=== PATIENT | male | born 1970 | race African-American/Black ===

== ENCOUNTER 2020-03-04 17:33 | Inpatient (IN) | payer MEDICAID, OTHER, SELFPAY ==
[~2020-03-04] VITALS: Ht 177.8 cm; Wt 87.5 kg
[2020-03-04 18:49] LABS: BASOPHILS # (AUTO) 0.07 x10^3/uL (0-0.1); BASOPHILS % (AUTO) 1 % (0-1); EOSINOPHILS # (AUTO) 0.07 x10^3/uL (0-0.4); EOSINOPHILS % (AUTO) 1 % (1-7); LYMPHOCYTES # (AUTO) 2.58 x10^3/uL (1-3.4); LYMPHOCYTES % (AUTO) 39 % (22-44); MD NO; MEAN CORPUSCULAR HEMOGLOBIN 31.3 pg (27.5-34.5); MEAN CORPUSCULAR VOLUME 94.7 fL (81-97); MEAN PLATELET VOLUME 7.5 fL (7.4-10.4); MONOCYTES # (AUTO) 0.43 x10^3/uL (0.2-0.8); MONOCYTES % (AUTO) 7 % (2-9); NEUTROPHILS % (AUTO) 53 % (42-75); PLATELET COUNT 255 x10^3/uL (130-400); RED CELL DISTRIBUTION WIDTH 14.7 % (9.4-14.8)
[2020-03-04 18:57] LABS: ANION GAP 2 mmol/L (5-15); CALCIUM 9.4 mg/dL (8.5-10.1); CHLORIDE 109 mmol/L (98-107); CREATININE 1.39 mg/dL (0.7-1.3)
[2020-03-04 18:58] LABS: ALANINE AMINOTRANSFERASE 38 U/L (12-78); ALBUMIN 3.9 g/dL (3.4-5.0)
[2020-03-04 19:00] LABS: ALKALINE PHOSPHATASE 72 U/L (45-117); BILIRUBIN,TOTAL 0.3 mg/dL (0.2-1.0); TOTAL PROTEIN 7.7 g/dL (6.4-8.2)
--- NOTE | 2020-03-04 19:23 | NUR ---
PT BG LOW AND PT TO HAVE PIV PLACED WITH D5
[2020-03-04] MEDS ORDERED: DEXTROSE 50%, 50ML SYRINGE ONE (19:25)
--- NOTE | 2020-03-04 19:26 | NUR ---
MD CASTAÑEDA TO BEDSIDE, PT HAVING PIV PLACED BY EMS.
[2020-03-04] MEDS ORDERED: DEXTROSE 50%, 50ML SYRINGE IVPush ONE (19:30)
[2020-03-04] MEDS ORDERED: SODIUM CHLORIDE 0.9% 1,000ML IVBOLUS ONE (19:30)
[2020-03-04] MEDS ORDERED: MORPHINE SULFATE 4 MG/ML, 1ML IVPush PRN (19:30)
[2020-03-04] MEDS ORDERED: ONDANSETRON 2MG/ML, 2ML IVPush ONE ×2 (19:30→21:30)
[2020-03-04 19:33] LABS: MICROSCOPIC INDICATED
[2020-03-04] MEDS ORDERED: MORPHINE SULFATE 4 MG/ML, 1ML ONE (19:35)
[2020-03-04] MEDS ORDERED: ONDANSETRON 2MG/ML, 2ML ONE ×2 (19:35→21:21)
[2020-03-04 19:59] LABS: BASOPHILS # (AUTO) 0.02 x10^3/uL (0-0.1); BASOPHILS % (AUTO) 0 % (0-1); EOSINOPHILS # (AUTO) 0.08 x10^3/uL (0-0.4); EOSINOPHILS % (AUTO) 1 % (1-7); LYMPHOCYTES # (AUTO) 2.47 x10^3/uL (1-3.4); LYMPHOCYTES % (AUTO) 40 % (22-44); MD NO; MEAN CORPUSCULAR HEMOGLOBIN 31.2 pg (27.5-34.5); MEAN CORPUSCULAR HGB CONC 33.1 g/dL (33.2-36.2); MEAN CORPUSCULAR VOLUME 94.3 fL (81-97); MEAN PLATELET VOLUME 7.3 fL (7.4-10.4); MONOCYTES # (AUTO) 0.37 x10^3/uL (0.2-0.8); MONOCYTES % (AUTO) 6 % (2-9); NEUTROPHILS # (AUTO) 3.32 x10^3/uL (1.8-6.8); NEUTROPHILS % (AUTO) 53 % (42-75); PLATELET COUNT 233 x10^3/uL (130-400); RED BLOOD COUNT 4.42 x10^6/uL (4.38-5.82); RED CELL DISTRIBUTION WIDTH 14.3 % (9.4-14.8)
--- NOTE | 2020-03-04 21:19 | NUR ---
BREAK RN: NORA CASTAÑEDA AT BEDSIDE FOR RECHECK/EXPLANATION OF RESULTS AND POC. PT VERBALIZES UNDERSTANDING. PT REPORTS CONT NAUSEA BUT DENIES ANY OTHER SYMPTOMS. PT AO X 4. SKIN WARM AND DRY. RESP EVEN AND UNLABORED. PT ON ON CONT BP, CARDIAC AND SPO2 MONITORS. CALL LIGHT WITHIN REACH.
[2020-03-04] MEDS ORDERED: D5%-0.45% NACL 1,000 ML IV SCH (21:30)
[2020-03-04] MEDS ORDERED: OMNIPAQUE 350 MG/ML, 100ML BOTTLE ONE (21:46)
[2020-03-04] MEDS ORDERED: PROMETHAZINE 25 MG/ML, 1ML ONE (21:46)
[2020-03-04] MEDS ORDERED: PROMETHAZINE 25 MG/ML, 1ML IM ONE (22:00)
--- NOTE | 2020-03-04 22:05 | NUR ---
PT RESTING IN BED, HOSPITALIST AT BEDSIDE. MEDICATED PER MAR. DENIES ANY FURTHER NEEDS OR CONCERNS AT THIS TIME. CALL LIGHT IN REACH.
[2020-03-04] MEDS ORDERED: ACETAMINOPHEN 325 MG TABLET PO PRN (22:30)
[2020-03-04] MEDS ORDERED: THIAMINE 200 MG, MVI ADULT 10 ML, FOLIC ACID 1 MG in D5%-0.9% NACL 1,000 ML IV SCH (22:30)
[2020-03-04] MEDS ORDERED: hydrALAzine 20 MG/ML, 1ML IVPush PRN (22:30)
[2020-03-04] MEDS ORDERED: ONDANSETRON 2MG/ML, 2ML IVPush PRN (22:30)
[2020-03-04] MEDS: D5%-0.45% NACL 1,000 ML IV SCH (22:30)
--- NOTE | 2020-03-04 22:40 | NUR ---
REPORT CALLED TO RECEIVING RN. PT RESTING IN BED AT THIS TIME.
--- NOTE | 2020-03-04 22:47 | NUR ---
PER ADMITTING [facility] PT. DOES NOT NEED TO BE TESTED AND ETIENNE R/O. CONFIRMED THIS WITH VIRAJ PAREKH. PT. OK TO GO TO PREVIOUSLY ASSIGNED ROOM.
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
[2020-03-04 23:16] VITALS: BP 153/102
[2020-03-05 02:30] VITALS: BP 155/97
[2020-03-05 05:50] LABS: CHLORIDE 111 mmol/L (98-107)
[2020-03-05 05:54] LABS: ANION GAP 4 mmol/L (5-15); CALCIUM 8.7 mg/dL (8.5-10.1); CREATININE 1.16 mg/dL (0.7-1.3)
[2020-03-05 06:07] LABS: BASOPHILS # (AUTO) 0.03 x10^3/uL (0-0.1); BASOPHILS % (AUTO) 1 % (0-1); EOSINOPHILS # (AUTO) 0.16 x10^3/uL (0-0.4); EOSINOPHILS % (AUTO) 3 % (1-7); LYMPHOCYTES # (AUTO) 3.17 x10^3/uL (1-3.4); LYMPHOCYTES % (AUTO) 55 % (22-44); MD NO; MEAN CORPUSCULAR HEMOGLOBIN 31.4 pg (27.5-34.5); MEAN CORPUSCULAR HGB CONC 33.1 g/dL (33.2-36.2); MEAN CORPUSCULAR VOLUME 94.9 fL (81-97); MEAN PLATELET VOLUME 7.3 fL (7.4-10.4); MONOCYTES # (AUTO) 0.43 x10^3/uL (0.2-0.8); MONOCYTES % (AUTO) 8 % (2-9); NEUTROPHILS # (AUTO) 1.96 x10^3/uL (1.8-6.8); NEUTROPHILS % (AUTO) 34 % (42-75); PLATELET COUNT 222 x10^3/uL (130-400); RED BLOOD COUNT 4.27 x10^6/uL (4.38-5.82); RED CELL DISTRIBUTION WIDTH 14.7 % (9.4-14.8)
[2020-03-05] MEDS: PANTOPRAZOLE 40MG TABLET PO SCH (06:30)
[2020-03-05] MEDS: D5%-0.45% NACL 1,000 ML IV SCH ×2 (06:30→16:06)
[2020-03-05 07:02] VITALS: BP_SYST 145; BP_SYST 158; BP_DIAS 104; BP_DIAS 89
[2020-03-05] MEDS: ENOXAPARIN 30 MG/0.3 ML SQ SCH ×3 (11:26→22:47)
[2020-03-05 14:19] VITALS: BP 141/87
[2020-03-05] MEDS: LORazepam 0.5MG TABLET PO SCH (21:07)
[2020-03-05 21:12] VITALS: BP 159/101
[2020-03-05] MEDS: NICOTINE 14MG/24 HR PATCH.TD24 TD SCH ×2 (22:48)
[2020-03-06 00:17] VITALS: BP 144/97
[2020-03-06] MEDS: D5%-0.45% NACL 1,000 ML IV SCH ×3 (01:25→19:51)
[2020-03-06 06:14] LABS: BASOPHILS # (AUTO) 0.02 x10^3/uL (0-0.1); BASOPHILS % (AUTO) 1 % (0-1); EOSINOPHILS # (AUTO) 0.16 x10^3/uL (0-0.4); EOSINOPHILS % (AUTO) 4 % (1-7); LYMPHOCYTES # (AUTO) 2.02 x10^3/uL (1-3.4); LYMPHOCYTES % (AUTO) 44 % (22-44); MD NO; MEAN CORPUSCULAR HEMOGLOBIN 31.3 pg (27.5-34.5); MEAN CORPUSCULAR HGB CONC 33.1 g/dL (33.2-36.2); MEAN CORPUSCULAR VOLUME 94.6 fL (81-97); MEAN PLATELET VOLUME 7.4 fL (7.4-10.4); MONOCYTES # (AUTO) 0.45 x10^3/uL (0.2-0.8); MONOCYTES % (AUTO) 10 % (2-9); NEUTROPHILS # (AUTO) 1.91 x10^3/uL (1.8-6.8); NEUTROPHILS % (AUTO) 42 % (42-75); PLATELET COUNT 213 x10^3/uL (130-400); RED BLOOD COUNT 4.37 x10^6/uL (4.38-5.82); RED CELL DISTRIBUTION WIDTH 14.6 % (9.4-14.8)
[2020-03-06 06:22] LABS: CHLORIDE 112 mmol/L (98-107)
[2020-03-06 06:29] LABS: ALANINE AMINOTRANSFERASE 27 U/L (12-78); ALBUMIN 2.9 g/dL (3.4-5.0); ALKALINE PHOSPHATASE 62 U/L (45-117); ANION GAP 6 mmol/L (5-15); BILIRUBIN,TOTAL 0.3 mg/dL (0.2-1.0); CALCIUM 9.2 mg/dL (8.5-10.1); CREATININE 1.06 mg/dL (0.7-1.3); TOTAL PROTEIN 6.1 g/dL (6.4-8.2)
[2020-03-06 06:40] VITALS: BP 152/92
[2020-03-06] MEDS: LORazepam 0.5MG TABLET PO SCH ×3 (08:21→20:32)
[2020-03-06] MEDS: ENOXAPARIN 30 MG/0.3 ML SQ SCH ×2 (08:21→22:36)
[2020-03-06] MEDS: PANTOPRAZOLE 40MG TABLET PO SCH (08:21)
[2020-03-06 11:57] VITALS: BP 162/101
[2020-03-06 14:21] VITALS: BP 136/99
[2020-03-06 18:43] VITALS: BP 143/80
[2020-03-06] MEDS: NICOTINE 14MG/24 HR PATCH.TD24 TD SCH (22:37)
[2020-03-07 00:57] VITALS: BP 141/90
[2020-03-07] MEDS: D5%-0.45% NACL 1,000 ML IV SCH ×2 (04:04→11:46)
[2020-03-07 06:21] LABS: CHLORIDE 110 mmol/L (98-107)
[2020-03-07 06:22] LABS: BASOPHILS # (AUTO) 0.02 x10^3/uL (0-0.1); BASOPHILS % (AUTO) 1 % (0-1); EOSINOPHILS # (AUTO) 0.14 x10^3/uL (0-0.4); EOSINOPHILS % (AUTO) 3 % (1-7); LYMPHOCYTES # (AUTO) 2.11 x10^3/uL (1-3.4); LYMPHOCYTES % (AUTO) 40 % (22-44); MD NO; MEAN CORPUSCULAR HEMOGLOBIN 30.9 pg (27.5-34.5); MEAN CORPUSCULAR HGB CONC 32.8 g/dL (33.2-36.2); MEAN PLATELET VOLUME 7.8 fL (7.4-10.4); MONOCYTES # (AUTO) 0.47 x10^3/uL (0.2-0.8); MONOCYTES % (AUTO) 9 % (2-9); NEUTROPHILS # (AUTO) 2.57 x10^3/uL (1.8-6.8); NEUTROPHILS % (AUTO) 48 % (42-75); PLATELET COUNT 216 x10^3/uL (130-400); RED BLOOD COUNT 4.56 x10^6/uL (4.38-5.82); RED CELL DISTRIBUTION WIDTH 14.2 % (9.4-14.8)
[2020-03-07 06:26] LABS: ALANINE AMINOTRANSFERASE 26 U/L (12-78); ALBUMIN 3.1 g/dL (3.4-5.0); ALKALINE PHOSPHATASE 67 U/L (45-117); ANION GAP 9 mmol/L (5-15); BILIRUBIN,TOTAL 0.2 mg/dL (0.2-1.0); CREATININE 0.93 mg/dL (0.7-1.3); TOTAL PROTEIN 6.3 g/dL (6.4-8.2)
[2020-03-07 07:25] VITALS: BP 158/109
[2020-03-07] MEDS: PANTOPRAZOLE 40MG TABLET PO SCH (08:42)
[2020-03-07] MEDS: LORazepam 0.5MG TABLET PO SCH (08:42)
[2020-03-07] MEDS: ENOXAPARIN 30 MG/0.3 ML SQ SCH (11:43)
[2020-03-07 13:35] VITALS: BP 150/100
== END 2020-03-07 17:18 | disposition home or self-care (01) | DRG 641 ==
LOC: ED 22:07 → EDIP 22:34 → 5SO 23:06 → 4WST 03-06 11:42 → DCLOUNGE 03-07 14:48
PROVIDERS: ADMIT Hospitalist; ATTEND Internal Medicine
DX: E16.2 Hypoglycemia, unspecified (principal); N17.9 Acute kidney failure, unspecified; E86.0 Dehydration; F14.10 Cocaine abuse, uncomplicated; R03.0 Elevated blood-pressure reading, without diagnosis of hypertension; F15.10 Other stimulant abuse, uncomplicated; F17.210 Nicotine dependence, cigarettes, uncomplicated; Z56.0 Unemployment, unspecified; Z80.0 Family history of malignant neoplasm of digestive organs; Z83.3 Family history of diabetes mellitus
CPT/HCPCS: 36415; 80377; J7042; 74177; 80048; 80053; 81001; 82962; 83036; 83690; 83735; 84100; 84681; 85025; 99285; G0378; J1650; J2405; J2550; J3411; Q9967; G0481; J0360; J2270; J7030

== ENCOUNTER 2020-04-22 20:48 | Emergency (ER) | payer MEDICAID ==
[~2020-04-22] VITALS: Ht 177.8 cm; Wt 81.7 kg
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
[2020-04-22 22:03] LABS: ALANINE AMINOTRANSFERASE 28 U/L (12-78); ALBUMIN 3.7 g/dL (3.4-5.0); ANION GAP 7 mmol/L (5-15); CALCIUM 8.8 mg/dL (8.5-10.1); CHLORIDE 113 mmol/L (98-107); CREATININE 1.21 mg/dL (0.7-1.3)
[2020-04-22 22:05] LABS: SALICYLATE LEVEL < 1.7 mg/dL (2.8-20.0)
[2020-04-22 22:06] LABS: BASOPHILS # (AUTO) 0.02 x10^3/uL (0-0.1); BASOPHILS % (AUTO) 0 % (0-1); EOSINOPHILS # (AUTO) 0.18 x10^3/uL (0-0.4); EOSINOPHILS % (AUTO) 4 % (1-7); LYMPHOCYTES # (AUTO) 2.59 x10^3/uL (1-3.4); LYMPHOCYTES % (AUTO) 52 % (22-44); MD NO; MEAN CORPUSCULAR HEMOGLOBIN 30.5 pg (27.5-34.5); MEAN CORPUSCULAR HGB CONC 32.5 g/dL (33.2-36.2); MEAN PLATELET VOLUME 7.4 fL (7.4-10.4); MONOCYTES # (AUTO) 0.53 x10^3/uL (0.2-0.8); MONOCYTES % (AUTO) 11 % (2-9); NEUTROPHILS % (AUTO) 34 % (42-75); PLATELET COUNT 268 x10^3/uL (130-400); RED BLOOD COUNT 4.71 x10^6/uL (4.38-5.82); RED CELL DISTRIBUTION WIDTH 14.1 % (9.4-14.8)
[2020-04-22 22:11] LABS: AMPHETAMINE SCREEN, URINE Positive (Negative); BARBITURATE SCREEN, URINE Negative (Negative); BENZODIAZEPINE SCREEN, URINE Negative (Negative); CANNABINOID SCREEN, URINE Positive (Negative); COCAINE SCREEN, URINE Negative (Negative); METHADONE SCREEN, URINE Negative (Negative); OPIATE SCREEN, URINE Negative (Negative)
[2020-04-22 22:14] LABS: ALKALINE PHOSPHATASE 81 U/L (45-117); BILIRUBIN,TOTAL 0.3 mg/dL (0.2-1.0); TOTAL PROTEIN 7.3 g/dL (6.4-8.2)
--- NOTE | 2020-04-22 22:26 | NUR ---
PT LAYING IN [facility], [facility], NO CHANGE IN CONDITION. VSS. WAITING ON RECHECK. WCTM.
--- NOTE | 2020-04-22 23:37 | NUR ---
LATE ENTRY: PT GIVEN CRACKERS AND PEANUT BUTTER AND ADDITIONAL WARM BLANKETS FOR COMFORT, NAD, EVEN AND BILATERAL CHEST RISE AND FALL, SITTER IN LINE OF SIGHT, NO OTHER CHANGES IN CONDITION. WCTM.
--- NOTE | 2020-04-23 00:42 | NUR ---
PT RESTING ON GURNEY, NAD, EYES CLOSED, SITTER IN LINE OF SIGHT, EVEN AND BILATERAL RESPIRATIONS. WCTM.
--- NOTE | 2020-04-23 01:59 | NUR ---
PT RESTING ON GURNEY, APPEARS COMFORTABLE, EYES CLOSED, NAD, RESP WNL WITH EVEN AND BILATERAL CHEST RISE AND FALL, SITTER IN LINE OF SIGHT, WCTM. PT ON HOLD.
--- NOTE | 2020-04-23 02:53 | NUR ---
PT RESTING ON [facility], HOSPITAL BED ORDERED. PT NAD, COVERS OVER HEAD RESTING, APPEARS COMFORTABLE. SITTER IN LINE IF SIGHT. WCTM. SITTER IN LINE OF SIGHT.
--- NOTE | 2020-04-23 04:11 | NUR ---
PT RESTING ON GURNEY, HOSPITAL BED ORDERED. PT NAD, COVERS OVER HEAD RESTING, APPEARS COMFORTABLE. SITTER IN LINE IF SIGHT. WCTM. SITTER IN LINE OF SIGHT. ATTEMPTED TO MOVE PT TO HOSPITAL BED BUT PT REFUSED TO GET UP OR MOVE.
--- NOTE | 2020-04-23 05:19 | NUR ---
PT RESTING ON GURNEY, SITTER IN LINE OF SIGHT. PT NAD, APPEARS COMFORTABLE. BREAKFAST TRAY ORDERED. EVEN AND BILATERAL CHEST RISE AND FALL. WCTM.
--- NOTE | 2020-04-23 06:30 | NUR ---
PT RESTING ON HIS GURNEY, SITTER IN LINE OF SIGHT. EYES CLOSED, CHEST RISE AND FALL EVEN BILATERALLY. NAD, WCTM. PT ON HOLD. PT STILL REFUSING TO TRANSFER TO HOSPITAL BED FOR COMFORT.
--- NOTE | 2020-04-23 07:00 | NUR ---
Report from margot PAGE.
--- NOTE | 2020-04-23 07:00 | NUR ---
REPORT TO ROMAN PAGE. PT CARE TRANSFERRED AT THIS TIME.
--- NOTE | 2020-04-23 07:31 | NUR ---
Pt resting comfortably in bed. Sitter bedside monitoring pt.
--- NOTE | 2020-04-23 07:47 | NUR ---
THROUGHPUT RN::PER ERP, HAVE PSYCH CERTIFIED RECREATIONAL THERAPIST SEE PT THIS AM. SENT TEXT TO PSYCH CERTIFIED RECREATIONAL THERAPIST THAT EVAL IS NEEDED FOR PT.
--- NOTE | 2020-04-23 08:00 | NUR ---
Pt resting comfortably, sitter monitoring pt, will conitnue to monitor.
[2020-04-23 09:20] VITALS: BP 159/112
--- NOTE | 2020-04-23 09:20 | NUR ---
Pt resting in gurney. Pt given breakfast tray. Pt monitored by sitter 1:1. Pt expresses no needs at this time. Pt sts he doesnt need to use RR at this time.
--- NOTE | 2020-04-23 09:34 | NUR ---
THROUGHPUT NURSE::PSYCH ALUMINUM SHINGLE ROOFER COMING TO SEE PT THIS AM.
--- NOTE | 2020-04-23 09:55 | NUR ---
Pt resting in [facility], sitter monitoring pt 1:1, pt has finished breakfast given to him.
--- NOTE | 2020-04-23 11:05 | NUR ---
Psych provider bedside.
[2020-04-23] MEDS ORDERED: ZIPRASIDONE 20MG CAPSULE PO ONE (12:00)
[2020-04-23] MEDS ORDERED: ZIPRASIDONE 20MG CAPSULE ONE (12:15)
--- NOTE | 2020-04-23 12:55 | NUR ---
Provided with food then medicated per emar (takes geodon daily). to watch for a period of time to assure medication safety then d/c
--- NOTE | 2020-04-23 13:00 | NUR ---
Patient/Caregiver given discharge instructions and they have confirmed that they understand the instructions. Patient ambulatory with steady gait. Pt given d/c instructions and verbalized understanding.
== END 2020-04-23 14:04 | disposition home or self-care (01) ==
LOC: ED 22:17
DX: F32.0 Major depressive disorder, single episode, mild (principal); F15.159 Other stimulant abuse with stimulant-induced psychotic disorder, unspecified; F22 Delusional disorders; F17.200 Nicotine dependence, unspecified, uncomplicated
CPT/HCPCS: 36415; 80053; 80307; 84443; 85025; 99283

== ENCOUNTER 2020-05-15 18:52 | Emergency (ER) | payer MEDICAID ==
[~2020-05-15] VITALS: Ht 185.4 cm; Wt 82.7 kg
--- NOTE | 2020-05-15 20:07 | NUR ---
NO ANSWER WHEN CALLED FOR ROOM, NEXT PT ROOMED
--- NOTE | 2020-05-15 21:46 | NUR ---
NO ANSWER AT THIS TIME
[2020-05-15 21:59] VITALS: BP 162/103
== END 2020-05-15 22:21 | disposition home or self-care (01) ==
LOC: ED 22:15
DX: F10.10 Alcohol abuse, uncomplicated (principal); F15.10 Other stimulant abuse, uncomplicated; F17.210 Nicotine dependence, cigarettes, uncomplicated; Z72.9 Problem related to lifestyle, unspecified; Y90.0 Blood alcohol level of less than 20 mg/100 ml
CPT/HCPCS: 99281; 99406

== ENCOUNTER 2020-05-31 13:40 | Emergency (ER) | payer MEDICAID ==
[~2020-05-31] VITALS: Ht 177.8 cm; Wt 84.0 kg
[2020-05-31 14:01] VITALS: BP 162/100
--- NOTE | 2020-05-31 14:12 | NUR ---
C/O N/V X3 DAYS, DENIES SOB OR CHEST PAIN. ERMD AT BEDSIDE FOR EVAL.
[2020-05-31] MEDS ORDERED: MAALOX/HYOSCYAMINE/LIDOCAINE 45 ML BTL PO ONE (14:30)
[2020-05-31] MEDS ORDERED: MAALOX/HYOSCYAMINE/LIDOCAINE 45 ML BTL ONE (14:36)
== END 2020-05-31 14:42 | disposition home or self-care (01) ==
LOC: ED 13:55
DX: K29.20 Alcoholic gastritis without bleeding (principal); K21.9 Gastro-esophageal reflux disease without esophagitis; R11.10 Vomiting, unspecified
CPT/HCPCS: 99283

== ENCOUNTER 2020-07-22 16:03 | Emergency (ER) | payer MEDICAID ==
[~2020-07-22] VITALS: Ht 177.8 cm; Wt 82.3 kg
[2020-07-22 17:25] LABS: BASOPHILS % (AUTO) 1 % (0-1); EOSINOPHILS % (AUTO) 1 % (1-7); LYMPHOCYTES % (AUTO) 41 % (22-44); MEAN CORPUSCULAR HEMOGLOBIN 30.9 pg (27.5-34.5); MEAN CORPUSCULAR HGB CONC 32.9 g/dL (33.2-36.2); MEAN PLATELET VOLUME 6.8 fL (7.4-10.4); MONOCYTES % (AUTO) 8 % (2-9); NEUTROPHILS % (AUTO) 49 % (42-75); PLATELET COUNT 265 x10^3/uL (130-400); RED BLOOD COUNT 4.78 x10^6/uL (4.38-5.82); RED CELL DISTRIBUTION WIDTH 13.9 % (9.4-14.8)
[2020-07-22 17:34] LABS: CALCIUM 9.1 mg/dL (8.5-10.1); CHLORIDE 107 mmol/L (98-107)
[2020-07-22 17:39] LABS: ALANINE AMINOTRANSFERASE 28 U/L (12-78); ALBUMIN 4.1 g/dL (3.4-5.0); ALKALINE PHOSPHATASE 69 U/L (45-117); ANION GAP 3 mmol/L (5-15); BILIRUBIN,TOTAL 0.5 mg/dL (0.2-1.0); CREATININE 1.11 mg/dL (0.7-1.3); TOTAL PROTEIN 7.7 g/dL (6.4-8.2)
[2020-07-22 17:45] LABS: SALICYLATE LEVEL < 1.7 mg/dL (2.8-20.0)
[2020-07-22 17:48] LABS: MD NO
[2020-07-22 17:54] LABS: MICROSCOPIC NOT IND
[2020-07-22 18:06] LABS: AMPHETAMINE SCREEN, URINE Positive (Negative); BARBITURATE SCREEN, URINE Negative (Negative); BENZODIAZEPINE SCREEN, URINE Negative (Negative); CANNABINOID SCREEN, URINE Negative (Negative); COCAINE SCREEN, URINE Negative (Negative); METHADONE SCREEN, URINE Negative (Negative); OPIATE SCREEN, URINE Negative (Negative)
[2020-07-22] MEDS ORDERED: LISINOPRIL 10 MG TABLET PO ONE (18:30)
[2020-07-22] MEDS ORDERED: LISINOPRIL 10 MG TABLET ONE (18:59)
[2020-07-22 19:38] VITALS: BP 160/97
== END 2020-07-22 20:31 | disposition home or self-care (01) ==
LOC: ED 20:15
DX: R41.82 Altered mental status, unspecified (principal); F15.10 Other stimulant abuse, uncomplicated; Z72.9 Problem related to lifestyle, unspecified; K21.9 Gastro-esophageal reflux disease without esophagitis; M25.511 Pain in right shoulder; M25.522 Pain in left elbow
CPT/HCPCS: 36415; 70450; 80053; 80307; 81003; 82140; 85025; 99284

== ENCOUNTER 2021-03-10 22:49 | Emergency (ER) | payer MEDICAID ==
[~2021-03-10] VITALS: Ht 177.8 cm; Wt 81.6 kg
--- NOTE | 2021-03-11 01:52 | NUR ---
pt c/o of not being able to sleep for 4 days states only being able to sleep for 20 minute increments. pt believes it is because of brianne material he was working with. attached to monitors, vss, nadn bed in low position, rails engaged, call light on lap
[2021-03-11] MEDS ORDERED: LORazepam 1MG TABLET PO ONE (02:00)
[2021-03-11] MEDS ORDERED: LORazepam 1MG TABLET ONE (02:11)
[2021-03-11] MEDS ORDERED: ONDANSETRON ODT 4 MG ONE (02:24)
[2021-03-11] MEDS ORDERED: ONDANSETRON ODT 4 MG PO ONE (02:30)
[2021-03-11 03:07] VITALS: BP 153/92
--- NOTE | 2021-03-11 03:09 | NUR ---
Patient/Caregiver given discharge instructions and they have confirmed that they understand the instructions. Patient ambulatory with steady gait. NAD, all questions answered appropriately, denies additional needs at this time. No personal belongings left in room after discharge. pt states he feels fine to walk home.
== END 2021-03-11 03:11 | disposition home or self-care (01) ==
LOC: ED 23:00
DX: F41.1 Generalized anxiety disorder (principal); G47.00 Insomnia, unspecified; R53.83 Other fatigue; I10 Essential (primary) hypertension; K21.9 Gastro-esophageal reflux disease without esophagitis
CPT/HCPCS: 99283; Q0162